=== PATIENT | male | born 1955 | race Caucasian/White ===

== ENCOUNTER 2018-10-26 02:06 | Day surgery (SDC) | payer MEDICARE, OTHER ==
[~2018-10-26] VITALS: Ht 170.2 cm; Wt 75.7 kg
[2018-10-26] VITALS (8 sets, daily range): BP systolic 83–139; BP diastolic 55–87
[~2018-10-26 02:06] MED LIST: ASPI81TA94 PO; EMPA10TA PO; LISI20TA29 PO; METF-450 PO; NO ROUTINE MEDS; OMEG-11 PO
[2018-10-26] MEDS ORDERED: PROPOFOL EMUL(*) 10MG/ML 20 ML 40 ML ONE (07:24)
[2018-10-26] MEDS ORDERED: LIDOCAINE/SOD BICARB 8.4% SYR ID ONE (11:50)
[2018-10-26] MEDS ORDERED: NORMOSOL R SOLN(*) 1000 ML BAG 1,000 ML IV PRN (11:50)
[2018-10-26] MEDS ORDERED: PROPOFOL EMUL(*) 10MG/ML 20 ML 20 ML ONE ×2 (13:40→13:55)
--- NOTE | 2018-10-26 14:24 | NUR ---
RN BEDSIDE. PT. REMAINS UNRESPONSIVE. VSS. NO CONCERNS.
--- NOTE | 2018-10-26 14:39 | NUR ---
RN AT BEDSIDE. NO CONCERNS. ABLE TO AROUSE. ENCOURAGED TO REST.
== END 2018-10-26 15:27 | disposition home or self-care (01) ==
LOC: OR 02:06
PROVIDERS: ATTEND Family Medicine
DX: Z12.11 Encounter for screening for malignant neoplasm of colon (principal); K62.1 Rectal polyp; I10 Essential (primary) hypertension; E11.9 Type 2 diabetes mellitus without complications
CPT/HCPCS: 00811; 36416; 45385; 82948; 88305; J2704